=== PATIENT | male | born 1980 ===

== ENCOUNTER 2019-05-27 11:27 | Emergency (ER) | payer SELFPAY | END 2019-05-27 14:00 | disposition home or self-care (01) | LOC: ERS 11:27 | DX: S70.311A Abrasion, right thigh, initial encounter (principal); M54.2 Cervicalgia; V89.2XXA Person injured in unspecified motor-vehicle accident, traffic, initial encounter | CPT/HCPCS: 99284 ==

== ENCOUNTER 2019-12-31 01:54 | Emergency (ER) | payer OTHER, SELFPAY ==
[2019-12-31] MEDS ORDERED: Acetaminophen 500 MG TAB ONE (02:09)
--- NOTE | 2019-12-31 08:28 | RAD ---
RADIOGRAPH CHEST 1 VIEW: DATE: 12/31/2019 TIME: 2:30 AM HISTORY: 39-year-old male with cough, chills, bodyaches, and dyspnea COMPARISON: none FINDINGS: Shallow inspiration. Multifocal patchy bilateral infiltrates in the mid and lower lung zones, left gr eater than right. Prominent subsegmental atelectasis at right mid-lower lung zone. No pneumothorax or effacement of lateral costophrenic angles. IMPRESSION: Bilateral infiltrates, suggestive of COVID-19 pneumonia
[2019-12-31 12:40] LABS: SARS-CoV-2 MS2 Positive; SARS-CoV-2 N Gene Positive; SARS-CoV-2 S Gene Positive; SARS-CoV-2 orf1ab Positive
== END 2019-12-31 02:44 | disposition home or self-care (01) ==
LOC: ERS 01:54
DX: U07.1 COVID-19 (principal); J12.89 Other viral pneumonia
CPT/HCPCS: 71045; 87635; U0003